=== PATIENT | male | born 1995 | race Hispanic/Latino ===

== ENCOUNTER 2017-05-25 09:05 | Emergency (ER) | payer OTHER ==
[2017-05-25] MEDS ORDERED: MOTRIN800 MG PO (09:13)
[2017-05-25 09:50] VITALS: BP 118/63
== END 2017-05-25 09:50 | disposition home or self-care (01) | DRG 605 ==
LOC: ED 09:05
PROC: 0HQDXZZ Repair Right Lower Arm Skin, External Approach (ICD-10-PCS; principal; 2017-05-25)
DX: S51.811A Laceration without foreign body of right forearm, initial encounter (principal); S43.401A Unspecified sprain of right shoulder joint, initial encounter; S13.9XXA Sprain of joints and ligaments of unspecified parts of neck, initial encounter; V69.88XA Occupant (driver) (passenger) of heavy transport vehicle injured in other specified transport accidents, initial encounter